=== PATIENT | male | born 1985 | race Caucasian/White ===

== ENCOUNTER 2019-06-18 08:17 | Emergency (ER) | payer OTHER ==
[~2019-06-18] VITALS: Ht 180.3 cm; Wt 100.5 kg
[~2019-06-18 08:17] MED LIST: BUPR150T3 PO; BUPR50TA PO; FOLI1TAB11 PO; HYDR-643 PO; MULT1TAB10 PO; OMEP20CA4 PO; OMEP40CA2 PO; THIA100TA PO
[2019-06-18] MEDS ORDERED: CEPHALEXIN 500 MG CAP PO ONE (08:45)
[2019-06-18] MEDS ORDERED: DOXYCYCLINE HYCLATE 100 MG TAB PO ONE (08:45)
[2019-06-18] MEDS ORDERED: KETOROLAC 60 MG/2 ML VIAL (J1885) IM ONE (08:45)
[2019-06-18] MEDS ORDERED: KEFL500C17 PO (08:58)
[2019-06-18] MEDS ORDERED: NAPR-837 PO (08:58)
[2019-06-18] MEDS ORDERED: DOXY100C37 PO (08:58)
[2019-06-18] MEDS ORDERED: NORC1TAB7 PO (08:58)
[2019-06-18 09:20] VITALS: BP 134/88
== END 2019-06-18 09:25 | disposition home or self-care (01) ==
LOC: M ED 08:17
DX: L02.412 Cutaneous abscess of left axilla (principal); K21.9 Gastro-esophageal reflux disease without esophagitis; Z87.442 Personal history of urinary calculi
CPT/HCPCS: 96372; 99283; J1885

== ENCOUNTER 2019-06-24 18:54 | Emergency (ER) | payer OTHER ==
[~2019-06-24] VITALS: Ht 177.8 cm; Wt 100.0 kg
[2019-06-24 18:54] VITALS: BP 147/95
[~2019-06-24 18:54] MED LIST changes: +DOXY100C37 PO; +KEFL500C17 PO; +NAPR-837 PO; +NORC1TAB7 PO
[2019-06-24] MEDS ORDERED: DOXY100C37 PO (19:29)
== END 2019-06-24 19:47 | disposition home or self-care (01) ==
LOC: M ED 18:54
DX: L02.412 Cutaneous abscess of left axilla (principal); K21.9 Gastro-esophageal reflux disease without esophagitis; F32.9 Major depressive disorder, single episode, unspecified; F43.20 Adjustment disorder, unspecified; K58.9 Irritable bowel syndrome, unspecified; F17.200 Nicotine dependence, unspecified, uncomplicated; Z79.899 Other long term (current) drug therapy; Z91.14 Patient's other noncompliance with medication regimen

== ENCOUNTER → 2021-02-19 | Outpatient (CLI) | payer OTHER ==
[~2021-02-19] MED LIST changes: +BUPR-69 PO; +BUPR150T12 PO; -BUPR150T3 PO; -BUPR50TA PO; +ISOVUE-300 61% 50ML VIAL As Ordered ONE; +OMEP1CAP73 PO; -OMEP20CA4 PO; -OMEP40CA2 PO; +OMEP40CA97 PO; +PROHANCE 279.3MG/ML 5ML VIAL As Ordered ONE
--- NOTE | 2021-02-19 09:09 | REP ---
INDICATION: LT HIP PAIN COMPARISON: None. TECHNIQUE: Coronal T1, STIR through the pelvis, axial, coronal, sagittal T2 fat sat, post arthrogram axial T1 fat sat, coronal T1 fat sat, sagittal T1 fat sat left hip. FINDINGS: There is flattening of the left femoral head, with a chronic dysplastic appearance. There is adequate coverage of the femoral head by the acetabulum. There is mild diffuse chondromalacia at the hip joint. There is no bone marrow edema or occult fracture. There is no evidence of avascular necrosis of the left femoral head. However, there is mild serpiginous signal abnormality in the anterior superior right femoral head compatible with early avascular necrosis. There is diffuse circumferential tearing of the labrum. There is a subcentimeter lobulated paralabral cyst at the anterior superior margin of the joint. There is a small joint effusion. There is mild increased signal in the tendons along the greater trochanters bilaterally compatible with mild bilateral greater trochanteric tendonobursitis. No other soft tissue signal abnormality is seen. The visualized intrapelvic structures are unremarkable. IMPRESSION: Dysplastic, flattened left femoral head. No bone marrow edema, occult fracture or avascular necrosis of the left femoral head. Mild chondromalacia at the hip joint. There is signal abnormality in the anterior superior right femoral head compatible with early avascular necrosis. Diffuse circumferential tearing of the labrum. Subcentimeter paralabral cyst at the anterior superior margin of the joint. Findings compatible with mild bilateral greater trochanteric tendonobursitis. <Electronically signed by Garrett Villalobos > 02/19/21 0905
--- NOTE | 2021-02-19 17:14 | REP ---
INDICATION: LT HIP PAIN. COMPARISON: None TECHNIQUE: The procedure was performed by BRIDGET Giron, under the direct supervision of Dr. Villalobos. The benefits and risks of the procedure were explained to the patient, and an informed consent was obtained. Directly prior to the start of the procedure, a formal time-out was completed in the procedure room. The left femoral neck joint space was localized using fluoroscopic guidance. The skin was prepped and draped in a sterile fashion. Approximately 5 mL of 1% Lidocaine 10 mg/ml was used as a local anesthetic. Using fluoroscopic guidance, a #22 gauge spinal needle was inserted and advanced into the left femoral neck joint space. Approximately 1 mL of Isovue 300 was injected to verify placement. Twelve mL of a solution containing 20 mL of sterile saline and 0.15 mL of ProHance was injected into the joint space. The needle was removed and the patient was taken to MRI for post procedural imaging. FINDINGS: The patient tolerated the procedure well and there were no immediate complications. IMPRESSION: Fluoroscopic guided MRI arthrogram injection. 0.1 minutes of fluoroscopy time was utilized for this procedure. Some fluoroscopic images are performed with last image hold technology. These images require no additional radiation. <Electronically signed by Altagracia Goodwin > 02/19/21 [id number] <Electronically signed by Garrett Villalobos > 02/19/21 [id number]
== END ==
LOC: M RADPRO 06:45
PROVIDERS: ATTEND Student in an Organized Health Care Education/Training Program
DX: M25.552 Pain in left hip (principal); M25.852 Other specified joint disorders, left hip; M94.252 Chondromalacia, left hip
CPT/HCPCS: 27093; 73723; 77002; A9576; Q9967

== ENCOUNTER 2021-03-13 08:18 | Outpatient (RCR) | payer OTHER ==
[~2021-03-13 08:18] MED LIST changes: -DOXY100C37 PO; +DOXY1CAP62 PO; -ISOVUE-300 61% 50ML VIAL As Ordered ONE; +OMEP40CA4 PO; -OMEP40CA97 PO; -PROHANCE 279.3MG/ML 5ML VIAL As Ordered ONE
== END 2021-04-10 ==
LOC: M PT 08:18
PROVIDERS: ATTEND Orthopaedic Surgery
DX: M25.559 Pain in unspecified hip (principal); M16.10 Unilateral primary osteoarthritis, unspecified hip